=== PATIENT | male | born 1975 | race Caucasian/White ===

== ENCOUNTER 2025-02-23 10:51 | Emergency (ER) | payer MEDICAID ==
[~2025-02-23] VITALS: Ht 175.3 cm; Wt 70.0 kg
[2025-02-23 10:54] VITALS: TEMP 36.9; O2SAT 98
[2025-02-23] MEDS: TETANUS, DIPHTHERIA, PERTUSSIS VAC/PF 0.5ML (>10YR OLD) IM ONE (12:59)
[2025-02-23] MEDS: BACITRACIN ZINC OINT UDPKT TOP ONE (13:00)
[2025-02-23] MEDS: LIDOCAINE HCL/EPINEPHRINE 1%-EPI 1:100,000 10ML VIAL INFIL ONE (13:13)
[2025-02-23 13:18] VITALS: BP 100/67; PULSE 68; RESP 14
[2025-02-23] MEDS: HYDROCODONE/ACETAMINOPHEN 7.5/325MG TABLET PO ONE (13:18)
== END 2025-02-23 21:48 | disposition home or self-care (01) ==
LOC: ER 10:51
DX: S01.01XA Laceration without foreign body of scalp, initial encounter (principal); W18.39XA Other fall on same level, initial encounter; Y93.89 Activity, other specified; Y92.89 Other specified places as the place of occurrence of the external cause; Y99.8 Other external cause status
CPT/HCPCS: 73000; 73030; 70450; 72125; 90715; 12002; 90471; 99285; Z7610 ×2; 96372